=== PATIENT | male | born 1970 ===

== ENCOUNTER 2016-11-13 09:29 | Outpatient (CLI) | payer BC, OTHER ==
[2016-11-13 12:47] LABS: #Basophils 0.1 thou/uL (0.0-0.2); #Eosinphils 0.2 thou/uL (0.0-0.7); #Lymphocytes 2.6 thou/uL (1.20-3.40); #Monocytes 0.7 thou/uL (0.11-0.59); #Neutrophils 3.6 thou/uL (1.40-6.50); %Basophils 0.8 % (0.0-1.0); %Eosinophils 2.7 % (0.0-10.0); %Lymphocytes 36.5 % (21.0-51.0); %Monocytes 9.9 % (0.0-10.0); %Neutrophils 50.1 % (42.0-75.0); Hemoglobin 15.8 g/dL (14.0-18.0); Mean Corpuscular HGB CONC 33.3 g/dL (32.0-36.0); Mean Corpuscular Hemoglobin 29.3 pg (27.0-31.0); Mean Corpuscular Volume 88.2 fl (80.0-94.0); Mean Platelet Volume 6.8 fL (7.4-10.4); Platelet Count 281 thou/uL (130-400); RBC Distribution Width 11.4 % (11.5-14.5); Red Blood Cell (RBC) Count 5.37 mill/uL (4.70-6.10); White Blood Cell (WBC) Count 7.2 thou/uL (4.8-10.8)
[2016-11-13 13:11] LABS: ALT (SGPT) 41 U/L (8-55); AST (SGOT) 25 U/L (5-34); Albumin 4.7 g/dL (3.5-5.0); Alkaline Phosphatase 45 U/L (40-150); Anion Gap 16 mmol/L (10-20); BUN (Urea Nitrogen) 13 mg/dL (8.9-20.6); Bilirubin, Total 0.6 mg/dL (0.2-1.2); Calc. Creatinine Clearance 0 mL/min (70-130); Calcium 9.8 mg/dL (7.8-10.44); Carbon Dioxide 20 mmol/L (22-29); Cardiac Risk 3.3 (Less than 4.5); Chloride 107 mmol/L (98-107); Cholesterol 112 mg/dl (< 200 Desired); Estimated GFR-MDRD 68; Globulin 2.9 g/dL (2.4-3.5); Glucose 103 mg/dL (70-105); HDL Cholesterol 34 mg/dL (>60 Neg Risk); LDL Cholesterol, Calculated 62 mg/dL; Potassium 4.5 mmol/L (3.5-5.1); Protein, Total 7.6 g/dL (6.0-8.3); Sodium 138 mmol/L (136-145); Triglycerides 82 mg/dL (Less than 150)
[2016-11-13 13:18] LABS: Bilirubin Negative (Negative); Blood, Urine Negative (Negative); Clarity Cloudy (Clear); Glucose, Urine (Dipstick) Negative (Negative); Leukocyte Negative (Negative); Nitrite Negative (Negative); Protein, Urine (Dipstick) Negative (Neg-Trace); Specific Gravity, Urine 1.025 (1.005-1.030); Urobilinogen 0.2 mg/dL (0.2-1.0); pH, Urine 5.5 (5.0-9.0)
== END 2016-11-13 09:30 ==
LOC: NAVSJIPCSP 09:29
PROVIDERS: ATTEND Internal Medicine
DX: Z00.00 Encounter for general adult medical examination without abnormal findings (principal); E78.5 Hyperlipidemia, unspecified; R82.99 Other abnormal findings in urine
CPT/HCPCS: 36415; 80053; 80061; 81003; 85025

== ENCOUNTER 2017-02-12 08:05 | Outpatient (CLI) | payer BC ==
[2017-02-12 12:45] LABS: Cardiac Risk 3.2 (Less than 4.5)
== END 2017-02-12 08:06 | disposition home or self-care (01) ==
LOC: NAVSJIPCSP 08:05
PROVIDERS: ATTEND Internal Medicine
DX: Z12.11 Encounter for screening for malignant neoplasm of colon (principal); E78.5 Hyperlipidemia, unspecified; Z79.899 Other long term (current) drug therapy
CPT/HCPCS: 36415; 80061

== ENCOUNTER 2017-02-19 10:30 | Outpatient (CLI) | payer BC | END 2017-02-19 10:31 | disposition home or self-care (01) | LOC: NAVSJIPCSP 10:30 | PROVIDERS: ATTEND Internal Medicine | DX: Z12.11 Encounter for screening for malignant neoplasm of colon (principal); E78.5 Hyperlipidemia, unspecified; Z79.899 Other long term (current) drug therapy | CPT/HCPCS: 82274 ==